=== PATIENT | male | born 1980 | race Caucasian/White ===

== ENCOUNTER → 2017-02-08 | Outpatient (CLI) | payer OTHER ==
[~2017-02-08] MED LIST: NF-METHI10 PO
--- NOTE | 2017-02-08 13:45 | Diagnostic Imaging Report ---
EXAMINATION: Ultrasound of the soft tissues of the neck. INDICATION: Lump along the upper posterior aspect of the neck. FINDINGS: There is a 3.3 x 1.1 x 3.4 cm lobulated hypoechoic lesion with increased through transmission and no internal vascularity is seen in the subcutaneous tissues at the area of lump. There is mild surrounding hyperemia. IMPRESSION: Nonspecific hypoechoic lesion along the subcutaneous tissues at the palpable area in the neck may relate to phlegmon or a developing abscess. Correlate clinically. Dictated by: Dictated on workstation # [id number]
== END ==
LOC: RAD 12:11
PROVIDERS: ATTEND Surgery
DX: R22.1 Localized swelling, mass and lump, neck (principal)
CPT/HCPCS: 76536

== ENCOUNTER 2017-02-11 08:57 | Outpatient (CLI) | payer OTHER ==
[~2017-02-11] VITALS: Ht 182.9 cm; Wt 99.8 kg
[2017-02-11] MEDS ORDERED: NF-METHI10 PO (12:43)
[2017-02-14] MEDS ORDERED: IBUP-2055 PO (09:38)
[2017-02-14] MEDS ORDERED: RANI75TA21 PO (09:38)
[2017-02-14] MEDS ORDERED: HYDR-3812 PO (10:17)
== END 2017-02-11 12:45 ==
LOC: PREOP 08:57
PROVIDERS: ATTEND Surgery
DX: Z01.818 Encounter for other preprocedural examination (principal); R22.1 Localized swelling, mass and lump, neck